=== PATIENT | female | born 1960 | race Caucasian/White ===

== ENCOUNTER → 2017-07-20 13:39 | Outpatient (CLI) | payer BC | END | disposition home or self-care (01) | LOC: D.LABREF 13:39 | DX: M17.11 Unilateral primary osteoarthritis, right knee (principal); Z11.8 Encounter for screening for other infectious and parasitic diseases ==

== ENCOUNTER 2017-08-03 10:00 | Inpatient (IN) | payer BC ==
[~2017-08-03 10:00] MED LIST: COZAAR100 MG PO; ELIQUIS5 MG PO; HUMULIN N100 U/ML SC; HUMULIN R100 U/ML SC; LIPITOR10 MG PO; PAMELOR10 MG PO; PREDNISONE10 MG PO; REMICADE INJ100 MG IVSOL; TENORMIN100 MG PO; VERAPAMIL HCL40 MG PO
[2017-08-03 12:22] LABS: BASOPHILS 0.6 % (0-2); EOSINOPHILS 1.5 % (0-7); HEMATOCRIT 35.9 % (36.0-48.0); HEMOGLOBIN 12.1 g/dL (12-16); IMMATURE GRANULOCYTES 0.3 % (0-5); LYMPHOCYTES 36.5 % (15-50); MCH 30.9 pg (26.0-34.0); MCHC 33.7 g/dL (31.0-37.0); MCV 91.6 fL (80.0-100.0); MEAN PLATELET VOLUME 9.2 fL (7.4-10.4); NEUTROPHILS 52.1 % (40-80); PLATELET COUNT 375 10x3/uL (130-400); RBC 3.92 10x6/uL (4.00-5.40); WBC 10.4 10x3/uL (4.8-10.8)
[2017-08-03 12:28] LABS: APTT 25.7 SECONDS (22.8-39.4); INR 1.15 (0.85-1.17); PROTIME 14.6 SECONDS (11.6-15.0)
[2017-08-03 12:31] LABS: CALC OSMOLALITY 280 mosm/kg (275-300); CALCIUM 8.6 mg/dL (8.5-10.1); CARBON DIOXIDE 27.6 mmol/L (21.0-32.0); CHLORIDE - SERUM 100 mmol/L (98-107); CREATININE - SERUM 0.7 mg/dL (0.6-1.3); GLUCOSE 182 mg/dL (74-106); POTASSIUM - SERUM 3.6 mmol/L (3.5-5.1); SODIUM 138 mmol/L (136-145); UREA NITROGEN 12 mg/dL (7-18); eGFR NON AFRICAN AMERICAN > 90 mL/min (90-120)
[2017-08-03 12:35] LABS: APPEARANCE SLT CLOUDY (CLEAR); BILIRUBIN NEGATIVE (NEGATIVE); COLOR DK YELLOW (YELLOW); GLUCOSE NEGATIVE (NEGATIVE); KETONE NEGATIVE (NEGATIVE); NITRITE NEGATIVE (NEGATIVE); PROTEIN NEGATIVE (NEGATIVE); SPECIFIC GRAVITY 1.015 (1.005-1.020); UROBILINOGEN NORMAL (NORMAL)
[2017-08-03 12:36] LABS: BACTERIA MODERATE /hpf (NONE SEEN); MUCUS <1+ /lpf (NONE SEEN); RED CELLS - URINE 0-5 /hpf (0-5); WHITE CELLS - URINE 25-50 /hpf (0-5)
[2017-08-09 07:50] VITALS: BP 180/76; BMI 35.9
--- NOTE | 2017-08-09 08:29 | NUR ---
DR. PERALES ADVISED OF FSBS. NO ORDER FOR INSULIN COVERAGE.
[2017-08-09 13:30] VITALS: BP 160/81
[2017-08-09 13:53] VITALS: BP 160/81; BMI 35.8
--- NOTE | 2017-08-09 16:00 | NUR ---
PT RECIEVED TO ROOM 2212 FROM RR NO DISTRESS NOTED AROUSES TO VERBAL STIMULI MIAH PHIPPS NOTED TO RIGHT LE SURGICAL DRESSING IN PLACE OT RLE S/P TKA
--- NOTE | 2017-08-09 16:20 | OP ---
PATIENT NAME: HERMAN BA MEDICAL RECORD: [id number] :56 LOCATION:[facility] ADMISSION DATE:08/09/17 SURGEON: CECILIO MERINO DO DATE OF OPERATION: 08/09/2017 PROCEDURE PERFORMED: Right total knee arthroplasty. PREOPERATIVE DIAGNOSIS: Right knee end-stage osteoarthritis. POSTOPERATIVE DIAGNOSIS: Right knee end-stage osteoarthritis. INDICATIONS: Ms. Ba is a 56-year-old female that has struggled with right knee pain for quite some time. She has failed injections and other conservative management treatments. She got to the point where it was affecting her activities of daily living and she desired to have something done surgically. She was informed about the risks and benefits of total knee and consented to undergo a right total knee in the office verbally. SURGEON: Cecilio Merino DO INSPECTOR PLATING: Michelle Fisher, advanced nurse practitioner. DESCRIPTION OF PROCEDURE: The patient was given a block in the preoperative area and taken to the operating room and placed in supine position and general anesthetic and given 2 grams of Ancef preoperatively. A timeout was performed and everyone was in agreement of correct side, site, and patient. Once this was done, the right leg was prepped and draped in sterile fashion. The incision was marked out and then Ioban was placed over the entire circumference of the knee. Once this was done, the leg was exsanguinated with an Esmarch and the tourniquet was inflated to 350 mmHg. Incision began through the skin down to the capsule. A new blade was used to do the capsulotomy and the medial parapatellar approach. Once this was done, the fat pad was taken out and a small release was done on the medial side due to the varus alignment of the knee. Once this was done, the fat pad was removed and the patella was everted and calipered and sized and then milled down from the patellar implant. Once this was done, the knee was brought into flexion, the retractors were put in place and intramedullary guide was placed. Drill was made into the medullary canal of the femur. Asepto was used to irrigate and suction out. The distal femur cutting block was placed and pins were put into place. An 11 mm were then removed from the distal femur using a saw. The knee was then brought into more flexion and the tibia was measured and 4 mm of the tibia were removed. Once the alignment was adjusted and this was done, then the femur was sized to be 5 and was then cut with 4-in-1 block. Once this was done, the patella was sized to be 28 and the drill holes were made for the patellar implant. The tibia was then prepped. Once the implant was placed on the femur, the tibial tray was placed with the poly and floated in. The knee was ranged and then the rotation was marked from the tibial implant. Then, the tibia was prepped. The femur trial was removed and the tibia was prepped. A 71 was seen to be the correct size for the tibia. Once this was done, the tibia was prepped and cement was mixed. Cement was applied to the tibia first and then on the tibial tray, was inserted into the tibia and impacted. Excess cement was removed. Once this was done, the femur was then inserted and put into place. A 10 poly was placed in the tibial tray and the knee was brought into extension, rested on the Van Dyne stand. OPERATIVE REPORT [id number] HERMAN BA Attention was then drawn to the patella where the patella was cemented into place. This was held into place on the patella and while the cement dried, excess cement was removed off the tibia and the patella. Once cement dried, the trial began. A 10 trial appeared to be a little loose and so a 12 trial was placed and seen to be the correct trial, 12 standard. This was decided to be the implant and the trial was then removed and a 12 trial was placed. The tourniquet was let down at 44 minutes and then all the coagulation was done at that time of any bleeders. The Dorcas was then placed in the posterior knee. Implant was placed and then had to be removed due to the Dorcas sticking to the tibial tray. This was irrigated and removed and the tibial implant was then placed. Again, locking mechanism of the tibial poly was put into place. Once this was done, the knee was ranged again and felt to be very stable. The capsule was then closed with #1 pop-offs and #1 running in [id number] fashion. Once this was done, Dorcas was placed in the subcutaneous tissues above the capsule and then a 2-0 Vicryl was used to close the skin in an inverted fashion. The ZipLine was placed on the skin for skin closure. Janki 4 x 4s, ABD, Webril, and Irvin wrap were then placed over the knee and a MIAH hose was placed up to the knee. The patient was then awakened and taken to recovery in stable condition. Blood loss was 100 mL. TRANSINT:[id number] Voice Confirmation ID: [id number] DOCUMENT ID: [id number] CECILIO MERINO DO at 1620 CC: [id number] DICTATION DATE: 08/09/17 1235 WINE BLENDER: 08/09/17 1304 ADM IN [facility] [address] [id number]
[2017-08-09 20:00] VITALS: BP 155/75
[2017-08-10] VITALS: BP 158/69
[2017-08-10 06:41] LABS: HEMATOCRIT 31.9 % (36.0-48.0); HEMOGLOBIN 10.7 g/dL (12-16); MCHC 33.5 g/dL (31.0-37.0); MCV 92.5 fL (80.0-100.0); MEAN PLATELET VOLUME 9.3 fL (7.4-10.4); RBC 3.45 10x6/uL (4.00-5.40); RDW 14.2 % (11.5-14.5); WBC 10.4 10x3/uL (4.8-10.8)
--- NOTE | 2017-08-10 07:22 | NUR ---
AWAKE AND ALERT WITH RESPIRATIONS EVEN AND NON LABORED. CPM REMOVED BY JUSTICE CARRANZA. BED ALARM ON AND CALL LIGHT IN REACH. SCD AND MIAH HOSE ON. DENIES NEEDS AT THIS TIME. WILL CONTINUE WITH PLAN OF CARE.
[2017-08-10 07:50] VITALS: BP 161/72
--- NOTE | 2017-08-10 08:56 | NUR ---
SCHEDULED MEDICATIONS ADMINISTERED AT THIS TIME. DENIES NEEDS AT THIS TIME. CALL LIGHT IN REACH, WILL CONTINUE WITH PLAN OF CARE.
--- NOTE | 2017-08-10 10:27 | NUR ---
PRN OXYCODONE 10MG ADMINISTERED FOR PAIN 06/16.
[2017-08-10 10:45] LABS: ALBUMIN 2.9 g/dL (3.4-5.0); ALKALINE PHOSPHATASE 77 U/L (46-116); ALT (SGPT) 38 U/L (10-68); CALC OSMOLALITY 281 mosm/kg (275-300); CALCIUM 8.3 mg/dL (8.5-10.1); CARBON DIOXIDE 27.2 mmol/L (21.0-32.0); CHLORIDE - SERUM 104 mmol/L (98-107); CREATININE - SERUM 0.7 mg/dL (0.6-1.3); GLUCOSE 208 mg/dL (74-106); POTASSIUM - SERUM 3.8 mmol/L (3.5-5.1); PROTEIN - SERUM 5.8 g/dL (6.4-8.2); SODIUM 139 mmol/L (136-145); UREA NITROGEN 8 mg/dL (7-18); eGFR NON AFRICAN AMERICAN > 90 mL/min (90-120)
[2017-08-10 12:11] VITALS: BP 123/72
--- NOTE | 2017-08-10 12:26 | NUR ---
PRN ATARAX ADMINISTERED AT THIS TIME FOR PAIN.
--- NOTE | 2017-08-10 12:54 | NUR ---
PLACED PT ON BEDPAN AT THIS TIME. MIKE MAT ALARM IN USE AND CALL LIGHT IN REACH.
--- NOTE | 2017-08-10 14:00 | NUR ---
ASSISTED PT TO RESTROOM WITH STANDBY SUPERVISION AND WALKER. ASSISTED BACK TO BED AND MIKE ALARM ON.
--- NOTE | 2017-08-10 14:41 | NUR ---
Patient Name: HERMAN JORDAN Admission Status: Elective Accout number: [id number] Admission Date: 08-09-2017 : 1960 Admission Diagnosis:UNILATERAL PRIMARY OSTEOARTHRITIS, RIGHT KNEE Attending: JV MERINO Current LOS: 1 Anticipated DC Date: Planned Disposition: Home Primary Insurance: [employer] Discharge Planning Comments: CM met with patient and sister (Radha) to assess discharge planning needs. Patient lives independently with 2 of her sisters and plans to return there. There are 3 steps to enter in her home. She has a walker, bedside commode, CPM and Ice Machine at home. She would like to do her PT at [place] and [place] in [facility] and her sister will be able to drive her. CM will continue to follow and assist with discharge planning needs. PCP: Lorna Galindo on [address] [place] [address] Radha (sister) [phone] Chrome Plater: Yenni Hudson * Is the patient Alert and Oriented? Yes 0 * How many steps to enter\exit or inside your home? 3 0 * PCP [facility] 0 * [facility]acy [facility] * Preadmission Environment Home with Family 0 * ADLs Independent 0 * Equipment Bedside Commode Walker 0 * Other Equipment CPM AND ICE MACHINE 0 * List name and contact numbers for known caregivers / representatives who currently or will assist patient after discharge: RADHA (SISTER) [phone] * Community resources currently utilized None 0 * Can the patient safely return to the preadmission environment? Yes 0 * Has this patient been hospitalized within the prior 30 days at any hospital? No 0 Grand Total: 0
[2017-08-10 15:48] VITALS: BP 137/51
[2017-08-10 20:00] VITALS: BP 173/66
[2017-08-11 04:00] VITALS: BP 140/66
[2017-08-11 04:06] LABS: BASOPHILS 0.3 % (0-2); EOSINOPHILS 0.4 % (0-7); HEMATOCRIT 33.1 % (36.0-48.0); HEMOGLOBIN 11.1 g/dL (12-16); IMMATURE GRANULOCYTES 0.4 % (0-5); MCH 31.1 pg (26.0-34.0); MCHC 33.5 g/dL (31.0-37.0); MCV 92.7 fL (80.0-100.0); MEAN PLATELET VOLUME 8.8 fL (7.4-10.4); MONOCYTES 11.7 % (2-11); NEUTROPHILS 62.2 % (40-80); PLATELET COUNT 279 10x3/uL (130-400); RBC 3.57 10x6/uL (4.00-5.40); RDW 14.2 % (11.5-14.5); WBC 11.2 10x3/uL (4.8-10.8)
[2017-08-11 04:33] LABS: ALBUMIN 2.6 g/dL (3.4-5.0); ALKALINE PHOSPHATASE 95 U/L (46-116); BILIRUBIN - TOTAL 0.76 mg/dL (0.2-1.3); CALC OSMOLALITY 273 mosm/kg (275-300); CALCIUM 8.8 mg/dL (8.5-10.1); CARBON DIOXIDE 28.1 mmol/L (21.0-32.0); CHLORIDE - SERUM 100 mmol/L (98-107); CREATININE - SERUM 0.7 mg/dL (0.6-1.3); GLUCOSE 179 mg/dL (74-106); POTASSIUM - SERUM 3.6 mmol/L (3.5-5.1); PROTEIN - SERUM 6.3 g/dL (6.4-8.2); SODIUM 136 mmol/L (136-145); UREA NITROGEN 6 mg/dL (7-18); eGFR NON AFRICAN AMERICAN > 90 mL/min (90-120)
[2017-08-11 04:34] LABS: ALT (SGPT) 28 U/L (10-68)
--- NOTE | 2017-08-11 07:14 | NUR ---
AWAKE AND ALERT WITH CPM ON AT THIS TIME. DENIES NEEDS AT THIS TIME. WILL CONTINUE WITH PLAN OF CARE.
[2017-08-11] MEDS ORDERED: OXYCODONE HCL5 MG PO (07:59)
[2017-08-11] MEDS ORDERED: ATARAX 25 MG TA25 MG PO (07:59)
[2017-08-11] MEDS ORDERED: KEFLEX500 MG PO (08:00)
[2017-08-11 08:14] VITALS: BP 129/64
--- NOTE | 2017-08-11 09:30 | NUR ---
SCHEDULED MEDICATIONS ADMINISTERED AT THIS TIME WELL PRN ATARAX. TAKEN WITHOUT DIFFICULTY. CALL LIGHT IN REACH, DENIES FURTHER NEEDS. WILL CONTINUE WITH PLAN OF CARE.
--- NOTE | 2017-08-11 10:19 | NUR ---
Patient set up for outpatient PT at [place] [facility] in the [facility]. Her first appointment is scheduled for Tuesday08/12/17 at 10:00 am. Patient has all DME at home. Her sister will be the one to drive her home at discharge.
--- NOTE | 2017-08-11 11:19 | NUR ---
PRN OXY IR ADMINISTERED AT THIS TIME FOR PAIN 05/16. REMAINS UP IN CHAIR. TO D/C HOME AFTER THERAPY THIS AFTERNOON.
--- NOTE | 2017-08-11 13:25 | NUR ---
DISCHARGE PAPERWORK REVIEWED WITH PT. DRESSING TO KNEE CHANGED PER ORDERS. DENIES QUESTIONS OR CONCERNS RELATED TO DISCHARGE. WILL D/C HOME AFTER PHYSICAL THERAPY WORKS WITH PT ONE MORE TIME.
== END 2017-08-11 13:43 | disposition home or self-care (01) | DRG 470 ==
LOC: D.SDCHOLD 10:00 → D.MS 08-09 05:21 → D.SDCHOLD 08-09 05:21 → D.MS 08-09 12:49
PROVIDERS: Family Medicine; ADMIT Orthopaedic Surgery
PROC: 0SRC0J9 Replacement of Right Knee Joint with Synthetic Substitute, Cemented, Open Approach (ICD-10-PCS; principal; 2017-08-09 08:30)
DX: M17.11 Unilateral primary osteoarthritis, right knee (principal); E11.65 Type 2 diabetes mellitus with hyperglycemia; E11.40 Type 2 diabetes mellitus with diabetic neuropathy, unspecified; Z79.4 Long term (current) use of insulin; I48.91 Unspecified atrial fibrillation; F10.20 Alcohol dependence, uncomplicated; Z87.891 Personal history of nicotine dependence

== ENCOUNTER 2018-10-18 17:47 | Inpatient (IN) | payer MEDICAID ==
[~2018-10-18] VITALS: Ht 154.9 cm; Wt 86.4 kg
--- NOTE | ~2018-10-18 | CN ---
PATIENT NAME:HERMAN BA MEDICAL RECORD: [id number] : 56 LOCATION:D. D.1202 ADMIT DATE: 10/18/18 ACCOUNT: [id number] CONSULTING PHYSICIAN: RAMSEY LAI MD REFERRING PHYSICIAN: RUBEN ROTHMAN MD DATE OF CONSULTATION: 10/19/2018 CONSULT REQUESTING PHYSICIAN: Dr. Bar. REASON FOR CONSULTATION: Acute exacerbation of asthma, shortness of breath. HISTORY OF PRESENT ILLNESS: Ms. Ba is a 58-year-old female who has a history of asthma. According to the patient, she has an upper respiratory tract infection since Tuesday. Yesterday, she was seen in Dr. Rothman's office and she has coughing, she was wheezing, she has shortness of breath. The patient was admitted to the hospital, questionable pneumonia. Now, she is feeling a little bit better. She does have some fever and night sweats. The cough is productive with whitish color sputum. REVIEW OF SYSTEMS: As in history of present illness. PAST MEDICAL HISTORY: 1. Asthma. 2. Obstructive sleep apnea. 3. Hypertension. 4. Type 2 diabetes mellitus. 5. History of Crohn disease. 6. History of atrial fibrillation. 7. Gastroesophageal reflux disease. SOCIAL HISTORY: She is an ex-smoker. She is a nondrinker. FAMILY HISTORY: Noncontributory. PHYSICAL EXAMINATION: GENERAL: Now, the patient is lying comfortably. She is not in acute distress. VITAL SIGNS: The blood pressure is 136/50, pulse is 75, respiration is 18, temperature 98.2, SPO2 of 92% on 2 liters nasal cannula. HEENT: Conjunctivae are pink. Sclerae are not icteric. NECK: The neck is supple, no JVD. CHEST: There is prolonged expiration with wheezing. No crackles. HEART: Rhythm regular, normal sound, no murmur. ABDOMEN: The abdomen is soft, bowel sounds present. No hepatosplenomegaly. RECTAL: Deferred. EXTREMITIES: No cyanosis, no clubbing, no pedal edema. CENTRAL NERVOUS SYSTEM: The patient is awake and alert. There is no obvious cranial nerve abnormality. The gait was not tested. LABORATORY DATA: CBC: WBC 10.2, hemoglobin 13.3, hematocrit 40.3, the platelet count 353. Chemistry: Sodium is 139, potassium is 3.9. Creatinine is 0.8. IMPRESSION: 1. Acute exacerbation of asthma. 2. Acute tracheobronchitis. 3. Acute cough. CONSULT REPORT [id number] HERMAN BA 4. Obstructive sleep apnea. 5. Gastroesophageal reflux disease. 6. History of atrial fibrillation. RECOMMENDATION: 1. Continue Levaquin IV. 2. Start on Brovana and budesonide nebulizer. 3. Albuterol and ipratropium nebulizer. 4. Methylprednisolone IV. 5. Singulair 10 mg a day. 6. Mucinex DM 2 tablets b.i.d. Repeat the labs and chest radiograph. 7. Continue Xarelto. Dr. Bar, thank you for involving me in the care of Ms. Ba. TRANSINT:[id number] Voice Confirmation ID: [id number] DOCUMENT ID: [id number] RAMSEY LAI MD CC: [id number] DICTATION DATE: 10/19/18 1251 MAIL TELLER: 10/19/18 1642 ADM IN [facility] [address] [id number]
[~2018-10-18 17:47] MED LIST changes: +ATARAX 25 MG TA25 MG PO; -HUMULIN R100 U/ML SC; +KEFLEX500 MG PO; +NOVOLOG100 UNIT/1 SQ; +OXYCODONE HCL5 MG PO
[2018-10-18 19:35] LABS: BASOPHILS 0.4 % (0-2); EOSINOPHILS 0.1 % (0-7); HEMATOCRIT 40.3 % (36.0-48.0); HEMOGLOBIN 13.3 g/dL (12-16); IMMATURE GRANULOCYTES 0.2 % (0-5); LYMPHOCYTES 9.4 % (15-50); MCH 29.7 pg (26.0-34.0); MEAN PLATELET VOLUME 9.5 fL (7.4-10.4); MONOCYTES 6.1 % (2-11); NEUTROPHILS 83.8 % (40-80); RBC 4.48 10x6/uL (4.00-5.40); RDW 13.8 % (11.5-14.5); WBC 10.2 10x3/uL (4.8-10.8)
[2018-10-18 19:57] LABS: ALBUMIN 3.6 g/dL (3.4-5.0); ALKALINE PHOSPHATASE 131 U/L (46-116); ALT (SGPT) 20 U/L (10-68); BILIRUBIN - TOTAL 0.53 mg/dL (0.2-1.3); CALC OSMOLALITY 282 mosm/kg (275-300); CALCIUM 9.1 mg/dL (8.5-10.1); CARBON DIOXIDE 26.7 mmol/L (21.0-32.0); CHLORIDE - SERUM 98 mmol/L (98-107); CREATININE - SERUM 0.8 mg/dL (0.6-1.3); GLUCOSE 196 mg/dL (74-106); POTASSIUM - SERUM 3.9 mmol/L (3.5-5.1); PROTEIN - SERUM 8.4 g/dL (6.4-8.2); SODIUM 139 mmol/L (136-145); UREA NITROGEN 12 mg/dL (7-18); eGFR NON AFRICAN AMERICAN 77 mL/min (90-120)
[2018-10-18 20:11] LABS: PLATELET COUNT 353 10x3/uL (130-400)
[2018-10-18 20:24] VITALS: BP 183/92
[2018-10-18] MEDS ORDERED: TRESIBA FL100 UNIT/1 SC (21:10)
[2018-10-18] MEDS ORDERED: NEURONTIN 300300 MG PO (21:13)
[2018-10-18] MEDS ORDERED: XARELTO20 MG PO (21:16)
[2018-10-19 00:58] VITALS: BP 156/82
[2018-10-19 01:36] VITALS: BP 199/92; Ht 154.9 cm; Wt 86.4 kg
[2018-10-19 04:00] VITALS: BP 149/69
[2018-10-19 08:15] VITALS: BP 170/76
[2018-10-19 11:31] VITALS: BP 136/50
[2018-10-19 12:19] LABS: APPEARANCE SL CLDY (CLEAR); BILIRUBIN NEGATIVE (NEGATIVE); COLOR YELLOW (YELLOW); GLUCOSE NEGATIVE (NEGATIVE); KETONE MODERATE mg/dL (NEGATIVE); NITRITE NEGATIVE (NEGATIVE); PROTEIN 1+ mg/dL (NEGATIVE); SPECIFIC GRAVITY 1.025 (1.005-1.020); UROBILINOGEN NORMAL (NORMAL)
[2018-10-19 12:24] LABS: BACTERIA MANY /hpf (NONE SEEN); MUCUS >1+ /lpf (NONE SEEN); RED CELLS - URINE 0-5 /hpf (0-5)
[2018-10-19 14:14] LABS: BASOPHILS 0.4 % (0-2); EOSINOPHILS 0.9 % (0-7); HEMOGLOBIN 12.2 g/dL (12-16); IMMATURE GRANULOCYTES 0.2 % (0-5); LYMPHOCYTES 26.9 % (15-50); MCHC 32.1 g/dL (31.0-37.0); MCV 90.3 fL (80.0-100.0); MEAN PLATELET VOLUME 9.4 fL (7.4-10.4); MONOCYTES 10.7 % (2-11); NEUTROPHILS 60.9 % (40-80); PLATELET COUNT 331 10x3/uL (130-400); RBC 4.21 10x6/uL (4.00-5.40); RDW 13.8 % (11.5-14.5); WBC 9.1 10x3/uL (4.8-10.8)
[2018-10-19 14:37] LABS: ALBUMIN 3.1 g/dL (3.4-5.0); ANION GAP 14.1 mmol/L (8-16); BILIRUBIN - TOTAL 0.34 mg/dL (0.2-1.3); CALCIUM 8.5 mg/dL (8.5-10.1); CARBON DIOXIDE 29.6 mmol/L (21.0-32.0); POTASSIUM - SERUM 3.7 mmol/L (3.5-5.1); PROTEIN - SERUM 6.9 g/dL (6.4-8.2)
[2018-10-19 14:38] LABS: CREATININE - SERUM 1.2 mg/dL (0.6-1.3)
[2018-10-19 17:02] VITALS: BP 131/56
[2018-10-20 04:21] LABS: BASOPHILS 0 % (0-2); EOSINOPHILS 0 % (0-7); HEMATOCRIT 38.5 % (36.0-48.0); HEMOGLOBIN 12.8 g/dL (12-16); IMMATURE GRANULOCYTES 0.1 % (0-5); LYMPHOCYTES 10.8 % (15-50); MCH 29.6 pg (26.0-34.0); MCHC 33.2 g/dL (31.0-37.0); MCV 89.1 fL (80.0-100.0); MEAN PLATELET VOLUME 9.6 fL (7.4-10.4); MONOCYTES 0.8 % (2-11); NEUTROPHILS 88.3 % (40-80); PLATELET COUNT 336 10x3/uL (130-400); RBC 4.32 10x6/uL (4.00-5.40); RDW 13.6 % (11.5-14.5); WBC 7.5 10x3/uL (4.8-10.8)
[2018-10-20 04:48] LABS: ALBUMIN 3.1 g/dL (3.4-5.0); ANION GAP 16.5 mmol/L (8-16); BILIRUBIN - TOTAL 0.26 mg/dL (0.2-1.3); CALCIUM 8.6 mg/dL (8.5-10.1); CARBON DIOXIDE 25.2 mmol/L (21.0-32.0); CREATININE - SERUM 0.9 mg/dL (0.6-1.3); MAGNESIUM - SERUM 1.6 mg/dL (1.8-2.4); POTASSIUM - SERUM 3.7 mmol/L (3.5-5.1); PROTEIN - SERUM 7.7 g/dL (6.4-8.2)
[2018-10-20] MEDS ORDERED: SINGULAIR10 MG PO (14:17)
[2018-10-20] MEDS ORDERED: MUCINEX DM ER1 EAC1 PO (14:18)
[2018-10-20] MEDS ORDERED: DULERA 200 MCG8.8 GM INH (14:19)
[2018-10-20] MEDS ORDERED: LEVAQUIN750 MG PO (14:21)
[2018-10-20] MEDS ORDERED: PREDNISONE10 MG PO (14:22)
== END 2018-10-20 17:39 | disposition home or self-care (01) | DRG 202 ==
LOC: D.M3 17:47
PROVIDERS: Family Medicine; Family Medicine Adult Medicine
DX: J20.9 Acute bronchitis, unspecified (principal); J18.9 Pneumonia, unspecified organism; J45.901 Unspecified asthma with (acute) exacerbation; N39.0 Urinary tract infection, site not specified; G47.33 Obstructive sleep apnea (adult) (pediatric); K21.9 Gastro-esophageal reflux disease without esophagitis; I48.91 Unspecified atrial fibrillation; I10 Essential (primary) hypertension; E11.65 Type 2 diabetes mellitus with hyperglycemia; E11.40 Type 2 diabetes mellitus with diabetic neuropathy, unspecified; E66.9 Obesity, unspecified; Z68.36 Body mass index [BMI] 36.0-36.9, adult